=== PATIENT | female | born 1950 | race Caucasian/White ===

== ENCOUNTER → 2017-12-30 | Outpatient (CLI) | payer BC, MEDICARE ==
[~2017-12-30] MED LIST: CALC600T63 PO; CHOL100052 PO; IBAN150T6 PO; IOPAMIDOL 76% 75 ML INFUS BTL 75 ML ONE; LEVO100T95 PO; LEVO75TA68 PO; NS 0.9% 20 ML SDV 40 ML ONE; SYNTHROID
--- NOTE | 2017-12-30 13:00 | RADIOLOGY IMAGING REPORT ---
[place] [facility] [place] Saima Porras : 1950 MR: [id number] V: [id number] EXAM DATE: ORDERING PHYSICIAN: CLOVER WILLIAMSON TECHNOLOGIST: Location: [facility] Patient: Saima Porras : 1950 Visit/Account:[id number] Date of Sevice: 12/30/2017 EXAMINATION: CT Abdomen W/O Contrast CT Abdomen W/ Contrast CT Pelvis W/O Contrast CT Pelvis W/ Contrast 12/30/2017 12:00 PM HISTORY: Abdominal pain TECHNIQUE: Spiral scans were obtained through the abdomen and pelvis before and during injection of nonionic iodinated intravenous contrast. Contrast: 75 mL of IV Isovue 370. One of the following dose optimization techniques was utilized in the performance of this exam: Autom ated exposure control; adjustment of the mA and/or kV according to the patient's size; or use of an i terative reconstruction technique. Specific details can be referenced in the facility's radiology C T exam operational policy. COMPARISON STUDIES: Abdominal ultrasound 05/13/2017. FINDINGS: Liver / biliary: Incidental tiny cyst in the medial right lobe. No significant acute finding. Pancreas: negative Spleen: negative Adrenal glands: negative Kidneys / retroperitoneum: negative Pelvic structures: Prior hysterectomy. Small ovaries bilaterally. Bowel / peritoneum / mesenteries: No acute finding. Gastric contours are unremarkable. No small bow el distention or focal inflammation. Appendix is either small or absent. No ileocecal area inflamma tory change. Minimal diverticulosis in the distal colon. No acute inflammation. Vessels: Atherosclerosis. Mesenteric vasculature is grossly patent. Musculoskeletal / Body wall: Degenerative changes in the spine with lumbosacral facet osteoarthropath y. Degenerative changes along the pubic symphysis and the left SI joint. Tiny fatty umbilical herni a. Lymph node assessment: negative Lower chest: Calcified granuloma in the posterior medial left lung base. IMPRESSION: No significant acute abnormality of the abdomen or pelvis. Report Dictated By: See Gilbert MD at 12/30/2017 12:44 PM Report E-Signed By: See Gilbert MD at 12/30/2017 12:55 PM WSN:[email or web address]
== END ==
LOC: CT 00:57
PROVIDERS: ATTEND Nurse Practitioner Family
DX: K57.30 Diverticulosis of large intestine without perforation or abscess without bleeding (principal); K76.89 Other specified diseases of liver
CPT/HCPCS: 36415; 74178; 82565; J7050; Q9967

== ENCOUNTER → 2018-01-14 | Outpatient (CLI) | payer BC, MEDICARE ==
[~2018-01-14] MED LIST changes: -IOPAMIDOL 76% 75 ML INFUS BTL 75 ML ONE; -NS 0.9% 20 ML SDV 40 ML ONE
--- NOTE | 2018-01-14 16:03 | RADIOLOGY IMAGING REPORT ---
FACILITY: [facility] - [place] PATIENT NAME: MAIRA WILLS : [id number] MR: [id number] V: [id number] EXAM DATE: [id number] ORDERING PHYSICIAN: CLOVER WILLIAMSON TECHNOLOGIST: David Rowe PROCEDURE: DEFINITY STRESS ECHOCARDIOGRAPHY COMPARISON: None. INDICATIONS: CHEST PRESSURE FINDINGS: After informed consent the patient was exercised using the Alfa protocol. She was able to complete 5 min of the Alfa protocol at which time she achieved 7 Mets & 96% of the predicted maximum heart rate. She had normal blood pressure responses. Her baseline EKG was within normal limits. With exercise there was minimal ST depression in the lateral leads but not diagnostic of ischemia. No arrhythmias were noted. ECHOCARDIOGRAPHIC PORTION OF THE STRESS TEST: At rest the patient had normal left ventricular ejection fraction of 68% with a Grade 1/4 decrease in diastolic function. There was a trace of mitral, tricuspid & pulmonic insufficiency with normal right ventricular systolic pressures of 30mm Hg. With exercise the patient had normal hyperdynamic response to exercise with no left ventricular segmental wall motion abnormalities noted with Definity contrast. CONCLUSION: 1. Normal stress echocardiograph with normal LV functions systolically at rest with hyperdynamic response to exercise & low probability of ischemia. 2. A Grade 1/4 decrease in diastolic function. 3. A trace of mitral, tricuspid & pulmonic insufficiency with normal right ventricular systolic pressures. 4. Patient had no symptoms of any chest discomfort with exercise & she had normal blood pressure & oxygen saturation responses. Dictated by: Chester Brewer M.D. on 01/14/2018 at 9:02 Transcribed by: RADHA on 01/14/2018 at 11:24 Approved by: Chester Brewer M.D. on 01/14/2018 at 16:02 [facility]
== END ==
LOC: US 06:48
PROVIDERS: ATTEND Nurse Practitioner Family
DX: I50.30 Unspecified diastolic (congestive) heart failure (principal); I34.0 Nonrheumatic mitral (valve) insufficiency; I07.1 Rheumatic tricuspid insufficiency; I37.1 Nonrheumatic pulmonary valve insufficiency
CPT/HCPCS: 93017; 93325; 93350

== ENCOUNTER → 2018-05-26 | Outpatient (CLI) | payer MEDICARE ==
--- NOTE | 2018-05-26 11:51 | RADIOLOGY IMAGING REPORT ---
[place] [facility] [place] NAME: Saima Porras : 1950 MR: [id number] V: [id number] EXAM DATE: ORDERING PHYSICIAN: JUAN DIEGO HUMPHREYS TECHNOLOGIST: Location: [facility] [place] Patient: Saima Porras : 1950 Visit/Account:[id number] Date of Sevice: 05/26/2018 ANKLE 2 VIEW RIGHT Given history: Pain. Clinical diagnosis of Achilles tendinitis COMPARISON STUDIES: NONE FINDINGS: Osseous structures: Intact without evidence of fracture . Small enthesophyte is seen at the Achil les attachment on the calcaneus. Joints: normal . Soft tissues: At the Achilles attachment at the calcaneus there is mild soft tissue prominence which could represent Achilles tear. There is also stranding in the pre-Achilles fat pad which is concerni ng for edema or injury at the Achilles tendon compatible with reported history. IMPRESSION: As detailed above probable Achilles pathology, possible tear at the myotendinous junction attachmen t to the calcaneus. This best evaluated by MRI. Report Dictated By: Ashutosh Mock MD at 05/26/2018 11:44 AM Report E-Signed By: Ashutosh Mock MD at 05/26/2018 11:47 AM WSN:[email or web address]
== END ==
LOC: RAD 11:07
PROVIDERS: ATTEND Nurse Practitioner Family
DX: M76.61 Achilles tendinitis, right leg (principal); R22.42 Localized swelling, mass and lump, left lower limb

== ENCOUNTER → 2018-10-20 | Outpatient (CLI) | payer MEDICARE ==
--- NOTE | 2018-10-21 08:33 | RADIOLOGY IMAGING REPORT ---
FACILITY: [facility] - [place] PATIENT NAME: MAIRA WILLS : [id number] MR: [id number] V: [id number] EXAM DATE: ORDERING PHYSICIAN: CLOVER WILLIAMSON TECHNOLOGIST: Tammy Rodriguez PROCEDURE:BILATERAL DIGITAL SCREENING MAMMOGRAM WITH CAD ASSISTED INTERPRETATION & 3D TOMOSYNTHESIS COMPARISON:Prior mammograms 09/16/17, 07/30/16, 08/01/15, 10/12/13, 10/06/12. INDICATIONS:Screening FINDINGS: Mildly heterogeneous fibroglandular tissue is seen throughout the breasts. The parenchymal pattern has remained stable allowing for difference in mammographic technique & patient positioning. There is no evidence of malignant appearing mass, malignant appearing calcifications or other secondary sign of malignancy in either breast. DIAGNOSTIC CATEGORY 1--NEGATIVE. RECOMMENDATIONS: ROUTINE MAMMOGRAM AND CLINICAL EVALUATION. IMPRESSION: BIRADS 1: Negative. No significant abnormality is seen. Dictated by: Vicki Grady M.D. on 10/20/2018 at 15:12 Transcribed by: CHAVEZ on 10/20/2018 at 15:50 Approved by: Vicki Grady M.D. on 10/21/2018 at 8:32 [facility]
== END ==
LOC: MAMO 01:55
PROVIDERS: ATTEND Nurse Practitioner Family
DX: Z12.31 Encounter for screening mammogram for malignant neoplasm of breast (principal)
CPT/HCPCS: 77063; 77067